=== PATIENT | male | born 1980 | race Caucasian/White ===

== ENCOUNTER 2020-03-18 01:51 | Emergency (ER) | payer OTHER ==
[2020-03-18 02:19] VITALS: BP 138/94; PULSE 99; TEMP 98.5; BMI 31.1
[2020-03-18] MEDS ORDERED: ALBUTEROL SO4 HFA INHALER IH ONE ×2 (02:28→02:44)
[2020-03-18 04:19] LABS: BASO % 0.5 % (0-2.0); EOS % 2.1 % (0-4.5); HEMATOCRIT 41.4 % (35.4-49); HEMOGLOBIN 13.9 GM/dL (11.7-16.9); LYMPH % 18.5 % (8-40); MCH 30.4 pg (25.7-33.7); MCHC 33.6 g/dl (32.0-35.9); MEAN CELL VOLUME 90.6 fl (80-96); MEAN PLT VOLUME 8.4 fl (7.5-11.1); MONO % 7.9 % (3.8-10.2); PLATELET COUNT 206 K/MM3 (134-434); RBC 4.58 M/mm3 (4.00-5.60); RDW 12.5 % (11.9-15.9); WHITE BLOOD COUNT 7.9 K/mm3 (4.0-10.0)
[2020-03-18 04:35] LABS: INR 0.97 (0.83-1.09)
[2020-03-18 04:37] LABS: ACTIVATED PTT 32.6 SECONDS (25.2-36.5)
[2020-03-18 04:38] LABS: CHLORIDE 107 mmol/L (98-107); POTASSIUM 3.8 mmol/L (3.5-5.1); SODIUM 140 mmol/L (136-145)
[2020-03-18 04:40] LABS: ALBUMIN 3.9 g/dl (3.4-5.0); ANION GAP 7 MMOL/L (8-16); BLOOD UREA NITROGEN 20.5 mg/dL (7-18); CALCIUM 8.7 mg/dL (8.5-10.1); CO2 26 mmol/L (21-32); GLUCOSE,RANDOM 117 mg/dL (74-106)
[2020-03-18 04:43] LABS: CREATININE 0.8 mg/dL (0.55-1.3); SGPT/ALT 78 U/L (13-61)
[2020-03-18 04:44] LABS: SGOT/AST 40 U/L (15-37)
[2020-03-18 04:45] LABS: BILIRUBIN,TOTAL 0.3 mg/dL (0.2-1); TOT PROT 7.4 g/dl (6.4-8.2)
[2020-03-18 04:46] LABS: ALK PHOS 128 U/L (45-117)
== END 2020-03-18 05:37 | disposition home or self-care (01) ==
LOC: JER 01:51
PROC: 3E0F7GC Introduction of Other Therapeutic Substance into Respiratory Tract, Via Natural or Artificial Opening (ICD-10-PCS; principal; 2020-03-18)
DX: R06.2 Wheezing (principal); R06.02 Shortness of breath
CPT/HCPCS: 36415; 71046-TC-FY; 80053; 84484; 85025; 85379; 85610; 85730; 93005; 93010; 99284-25; C9803; U0003

== ENCOUNTER 2020-08-27 11:34 | Emergency (ER) | payer OTHER ==
[2020-08-27 11:47] VITALS: TEMP 97.9; BMI 31.3
[2020-08-27] MEDS ORDERED: TETRACAINE 0.5% HCL 0.6ML DROPPER.BOTTLE OD ONE (12:49)
[2020-08-27] MEDS ORDERED: TETRACAINE 0.5% OPHTH SOLN 2 ML BOTTLE ONE ×2 (12:49→12:55)
[2020-08-27] MEDS ORDERED: MOXIFLOXACIN HCL 0.5% OPHTHALMIC 3 ML BOTTLE OD SCH (14:00)
[2020-08-27 15:03] VITALS: BP 120/85; PULSE 54
== END 2020-08-27 14:25 | disposition short-term general hospital (02) ==
LOC: JERFT 11:34
DX: H20.051 Hypopyon, right eye (principal); H20.9 Unspecified iridocyclitis; H53.8 Other visual disturbances
CPT/HCPCS: 99283-25